=== PATIENT | female | born 1980 | race Caucasian/White ===

== ENCOUNTER 2018-06-19 09:21 | Emergency (ER) | payer OTHER ==
[~2018-06-19] VITALS: Ht 170.2 cm; Wt 84.8 kg
[2018-06-19 09:25] VITALS: BP 163/109
--- NOTE | 2018-06-19 09:25 | NUR ---
PT. ARRIVED TO ED W / C/O ABD PAIN X THIS MORNING VOMITED ONCE, NO BLOOD. UPPER MEDIAL ABD PAIN THAT IS NON RADIAITNG AND TENDER UPON PALPATION. LBM: THIS MORNING NORMAL. PT. STATES " I JUST FEEL SICK" 6/10 PAIN THAT IS SHARP AND NON RADIATING. DENIES ANY FEVER OR CHILLS. RR EVEN AND UNLABORED. ACTIVE X 4 QUADS. ER MD MADE AWARE. SAFETY PRECAUTIONS IN PLACE. WILL CONTINUE TO MONITOR.
--- NOTE | 2018-06-19 09:26 | NUR ---
PT AMBULATED TO ER BED 09
[2018-06-19] MEDS ORDERED: NACL 0.9% 1,000 ML IV ONE (09:50)
[2018-06-19] MEDS ORDERED: PANTOPRAZOLE 40 MG INJ VIAL IVP ONE (09:50)
[2018-06-19] MEDS ORDERED: ASPIRIN 81 MG TAB.CHEW PO ONE (09:50)
[2018-06-19] MEDS ORDERED: ONDANSETRON 4 MG/2 ML VIAL IVP ONE (09:50)
--- NOTE | 2018-06-19 10:03 | NUR ---
radiology at bedside
[2018-06-19 10:04] LABS: BASOPHILS % (AUTO) 0.2 % (0.0-2.0); EOSINOPHILS # (AUTO) 0.3 K/uL (0-0.4); EOSINOPHILS % (AUTO) 3.4 % (0.0-4.0); HEMATOCRIT 37.6 % (36-48); HEMOGLOBIN 11.6 g/dL (12.0-16.0); LYMPHOCYTES # (AUTO) 0.9 K/uL (2.5-16.5); LYMPHOCYTES % (AUTO) 11.8 % (20.5-51.1); MEAN CORPUSCULAR HEMOGLOBIN 22 pg (27-31); MEAN CORPUSCULAR HGB CONC 31 g/dL (33-37); MEAN CORPUSCULAR VOLUME 70.2 fL (80-94); MONOCYTES # (AUTO) 0.5 K/uL (0.8-1.0); MONOCYTES % (AUTO) 6.2 % (1.7-9.3); NEUTROPHILS # (AUTO) 6.1 K/uL (1.8-7.7); NEUTROPHILS % (AUTO) 78.4 % (42.2-75.2); PLATELET COUNT (AUTO) 404 K/uL (140-450); RED BLOOD CELL COUNT(AUTO) 5.35 MIL/uL (4.20-5.40); RED CELL DISTRIBUTION WIDTH 16.8 % (11.6-13.7); WHITE BLOOD COUNT (AUTO) 7.7 K/uL (4.8-10.8)
[2018-06-19 10:11] LABS: ANION GAP 12.3 (8-16); CARBON DIOXIDE 25.4 mmol/L (21-32); CREATININE 0.8 mg/dL (0.6-1.3); POTASSIUM 3.7 mmol/L (3.5-5.1)
[2018-06-19 10:16] LABS: ALBUMIN 3.7 g/dL (3.4-5.0); TOTAL BILIRUBIN 0.4 mg/dL (0.0-1.0)
[2018-06-19 11:12] VITALS: BP 139/98
--- NOTE | 2018-06-19 11:12 | NUR ---
Patient discharged with v/s stable. Written and verbal after care instructions given and explained. Patient alert, oriented and verbalized understanding of instructions. Ambulatory with steady gait. All questions addressed prior to discharge. ID band removed. Patient advised to follow up with PMD. Rx of ZOFRAN ODT 4MG, AND PEPCID 40MG given. Patient educated on indication of medication including possible reaction and side effects. Opportunity to ask questions provided and answered.
== END 2018-06-19 11:12 | disposition home or self-care (01) ==
LOC: MED 09:21
DX: K29.70 Gastritis, unspecified, without bleeding (principal); E11.9 Type 2 diabetes mellitus without complications
CPT/HCPCS: 36415; 71045; 80053; 81002; 81025; 82948; 83690; 84484; 85025; 96361; 96374; 96375; 99284; C9113; J2405; Q0092; 93005; J7030

== ENCOUNTER 2018-12-23 12:30 | Emergency (ER) | payer OTHER ==
[~2018-12-23] VITALS: Ht 170.2 cm; Wt 84.1 kg
[2018-12-23 12:35] VITALS: BP 134/96
--- NOTE | 2018-12-23 12:46 | NUR ---
PT AMB TO BED 4
--- NOTE | 2018-12-23 12:48 | NUR ---
BIB SIGNIFICANT OTHER. AAO X4 C/O DIARRHEA, INTERMITENT EPIGASTRIC PAIN X 1 WEEK. PT STATES THAT SHE HAD A RECENT TRAVEL FROM [place] AND CAME BACK HOME FRIDAY. PT STATES "I LOST 6 LBS FROM HAVING DIARRHEA EVER SINCE I CAME BACK FROM [place]." PT TOOK PEPTOBISMOL YESTERDAY WITH NO RELIEF. PT DENIES BLOOD IN THE STOOL, SOB, N/V, FEVER. ER TO EVALUATE PT.
--- NOTE | 2018-12-23 13:04 | NUR ---
DR FOY AT BEDSIDE
[2018-12-23 14:01] VITALS: BP 127/88
--- NOTE | 2018-12-23 14:01 | NUR ---
Patient discharged with v/s stable. Written and verbal after care instructions given and explained. Patient alert, oriented and verbalized understanding of instructions. Ambulatory with steady gait. All questions addressed prior to discharge. ID band removed. Patient advised to follow up with PMD. Rx of AZITHROMYCIN, LOMOTIL given. Patient educated on indication of medication including possible reaction and side effects. Opportunity to ask questions provided and answered.
== END 2018-12-23 14:01 | disposition home or self-care (01) ==
LOC: MED 12:30
DX: R19.7 Diarrhea, unspecified (principal); R53.1 Weakness; E11.9 Type 2 diabetes mellitus without complications
CPT/HCPCS: 99283